=== PATIENT | male | born 1950 | race Caucasian/White ===

== ENCOUNTER 2022-06-04 16:23 | Inpatient (IN) ==
[2022-06-04 17:30] LABS: Hematocrit 38.8 % (37.5-50.1); Hemoglobin 13.9 g/dL (12.9-16.9); Immature Platelets 4.9 % (1.1-6.1); Mean Corpuscular HGB Conc 35.8 g/dL (31.6-35.5); Mean Corpuscular Hemoglobin 33.3 pg (28.0-33.3); Mean Platelet Volume 10.4 fL (9.4-12.4); Red Blood Count 4.17 M/mcL (4.19-5.50); Red Cell Distribution Width 12.9 % (11.5-14.5)
[2022-06-04 17:52] LABS: BUN/Creatinine Ratio 10 (6-26); Blood Urea Nitrogen 10 mg/dL (8-23); Calcium 9.2 mg/dL (8.6-10.3); Carbon Dioxide 27 mEq/L (23-29); Chloride 101 mEq/L (98-107); Glucose 111 mg/dL (70-105); Magnesium 1.8 mg/dL (1.6-2.6); Osmolality,Calculated 280 (280-300); Potassium 3.9 mEq/L (3.5-5.1); Sodium 135 mEq/L (136-145); Troponin I < 0.03 ng/mL (< 0.04)
[2022-06-04] MEDS ORDERED: Ondansetron 4 MG/2 ML VIAL IVP PRN (20:50)
[2022-06-04] MEDS ORDERED: Naloxone 0.4 MG/ML INJ IVP PRN (20:50)
[2022-06-04] MEDS ORDERED: Acetaminophen 325 MG TABLET PO PRN (20:50)
[2022-06-04] MEDS ORDERED: Melatonin 3 MG TABLET PO PRN (20:50)
[2022-06-04] MEDS ORDERED: *HR* Dextrose 50 % in Water (Syg) 50 ML SYRINGE IVP PRN (21:36)
[2022-06-04] MEDS ORDERED: Dextrose Gel 15 GM/37.5 ML TUBE PO PRN ×2 (21:36)
[2022-06-04] MEDS ORDERED: D5% in Water 1,000 ML IVC PRN (21:36)
[2022-06-04] MEDS ORDERED: *HR* Labetalol 20 MG/4 ML SYRINGE IVP PRN (22:33)
[2022-06-05] MEDS: Insulin LISPRO 300 UNITS/3 ML VIAL SUBQ SCH ×4 (01:06→18:13)
[2022-06-05 05:59] LABS: Basophils % 0.6 %; Eosinophils # 0.2 K/mcL (0.0-0.6); Eosinophils % 2.3 %; Hematocrit 38.1 % (37.5-50.1); Hemoglobin 13.5 g/dL (12.9-16.9); Immature Granulocytes % 0.6 % (0-4); Immature Platelets 4.4 % (1.1-6.1); Lymphocytes # 2.2 K/mcL (0.6-4.6); Lymphocytes % 31.8 %; Mean Corpuscular HGB Conc 35.4 g/dL (31.6-35.5); Mean Corpuscular Hemoglobin 32.8 pg (28.0-33.3); Mean Corpuscular Volume 92.7 fL (83.0-100.0); Mean Platelet Volume 10.2 fL (9.4-12.4); Monocytes # 0.7 K/mcL (0.0-1.3); Monocytes % 10.6 %; Neutrophils # 3.7 K/mcL (1.6-8.9); Platelet Count 128 K/mcL (140-400); Red Blood Count 4.11 M/mcL (4.19-5.50); Red Cell Distribution Width 12.9 % (11.5-14.5); Segmented Neutrophils % 54.1 %; White Blood Count 6.9 K/mcL (4.3-11.1)
[2022-06-05] MEDS ORDERED: NiCARdipine 2.5 MG/10 ML Syringe IVPB ONE (06:26)
[2022-06-05] MEDS ORDERED: DOBUTamine 1,000 MG/250 ML BAG ONE (06:26)
[2022-06-05] MEDS ORDERED: *HR* Vasopressin 20 UNIT/ML VIAL ONE (06:26)
[2022-06-05 06:30] LABS: Calcium 9.1 mg/dL (8.6-10.3); Potassium 3.8 mEq/L (3.5-5.1)
[2022-06-05] MEDS ORDERED: niCARdipine 0 MG/0 ML MLS IVC ONE (06:46)
[2022-06-05] MEDS ORDERED: *HR* Rocuronium Bromide 50 MG/5 ML VIAL ONE (06:46)
[2022-06-05] MEDS ORDERED: *HR* Norepinephrine 4 MG/4 ML VIAL IVC ONE (06:46)
[2022-06-05] MEDS ORDERED: Tranexamic Acid 1,000 MG/10 ML VIAL ONE (06:48)
[2022-06-05] MEDS ORDERED: *HR* Etomidate 20 MG/10 ML AMPUL IVP ONE (06:48)
[2022-06-05] MEDS ORDERED: Calcium Gluconate 1,000 MG/10 ML VIAL ONE (06:51)
[2022-06-05] MEDS ORDERED: Protamine Sulfate 250 MG/25 ML VIAL IVP ONE (06:51)
[2022-06-05] MEDS ORDERED: *HR* Midazolam HCl 5 MG/5 ML VIAL IVP ONE (06:52)
[2022-06-05] MEDS ORDERED: *HR* FentaNYL (PF) 250 MCG/5 ML VIAL ONE (06:52)
[2022-06-05] MEDS ORDERED: *HR* FentaNYL (PF) 100 MCG/2 ML VIAL ONE ×2 (07:11→16:22)
[2022-06-05] MEDS ORDERED: *HR* Heparin 10,000 UNIT/10 ML VIAL ONE ×2 (07:11→15:26)
[2022-06-05] MEDS ORDERED: *HR* Midazolam HCl 2 MG/2 ML VIAL ONE ×2 (07:11→16:22)
[2022-06-05] MEDS ORDERED: Heparin 1,000 UNITS/500 mL 0 ML ONE (07:11)
[2022-06-05] MEDS ORDERED: Nitroglycerin 1,000 MCG/5 ML VIAL IV ONE ×2 (07:12→15:26)
[2022-06-05] MEDS ORDERED: Iopamidol - 370 200 ML INFUS..BTL ONE ×2 (07:12→15:26)
[2022-06-05] MEDS ORDERED: Clindamycin 900 MG/50 ML 900 MG/50 ML IV.SOLN IVPB ONE (08:45)
[2022-06-05] MEDS ORDERED: atenoloL 50 MG TABLET PO SCH (09:00)
[2022-06-05] MEDS ORDERED: Aspirin 81 MG TAB.CHEW PO SCH (09:00)
[2022-06-05 09:46] LABS: ABG Base Excess -1 mEq/L (-2 to 3); ABG HCO3 22 mEq/L (21-27); ABG Oxygen Saturation 97 % (95-98); ABG PCO2 31 mmHg (35-45); ABG PH 7.47 pH Units (7.32-7.45); ABG PO2 82 mmHg (85-104); ABG TCO2 23 mEq/L (20-26)
[2022-06-05 09:49] LABS: INR 1.2; Prothrombin Time 13.9 Seconds (9.4-12.1)
[2022-06-05 09:52] LABS: Activated Partial Thrombo Time 34.5 Seconds (26.0-36.0)
[2022-06-05 09:55] LABS: Heparin anti-factor XA LMWH 0.24 IU/mL (0.50-1.10)
[2022-06-05 09:56] LABS: Chol/HDL Ratio 4.7 (0-4.9)
[2022-06-05] MEDS: lisinopriL 10 MG TABLET PO SCH (10:33)
[2022-06-05] MEDS: Chlorhexidine Rinse 15 ML MOUTHWASH MM SCH ×3 (10:33→20:09)
[2022-06-05] MEDS: Primidone 50 MG TABLET PO SCH (10:33)
[2022-06-05 10:37] LABS: Estimated Average Glucose 140 mg/dl; Hemoglobin A1C 6.5 %
[2022-06-05] MEDS ORDERED: Lidocaine Viscous Oral Soln 15 ML SOLUTION MM PRN (11:37)
[2022-06-05] MEDS ORDERED: 0.9 % Sodium Chloride 500 ML IVC ONE (11:38)
[2022-06-05] MEDS: *HR* FentaNYL (PF) 100 MCG/2 ML VIAL IVP PRN ×2 (12:00→12:02)
[2022-06-05] MEDS: *HR* Midazolam HCl 5 MG/5 ML VIAL IVP PRN ×2 (12:00→12:02)
[2022-06-05] MEDS ORDERED: 0.9 % Sodium Chloride 2,000 ML ONE (15:26)
[2022-06-05] MEDS ORDERED: Heparin 1,000 UNITS/500 mL 500 ML ONE ×2 (15:26→17:36)
[2022-06-05] MEDS ORDERED: Heparin 1,000 UNITS/500 mL IV.SOLN IVC ONE (18:13)
[2022-06-05] MEDS: atenoloL 50 MG TABLET PO SCH (18:32)
[2022-06-05] MEDS: Heparin 1,000 UNITS/500 mL 500 ML IVC SCH (18:43)
[2022-06-05] MEDS ORDERED: 0.9 % Sodium Chloride 250 ML IVC SCH (23:45)
[2022-06-06 00:14] LABS: Influenza A PCR Negative (Negative); Influenza B PCR Negative (Negative); Resp. Syncytial Virus PCR Negative (Negative)
[2022-06-06 00:16] LABS: SARS-CoV-2 by PCR (In House) Negative (Negative)
[2022-06-06] MEDS: Insulin LISPRO 300 UNITS/3 ML VIAL SUBQ SCH ×2 (03:36→06:01)
[2022-06-06 05:12] LABS: Basophils % 0.6 %; Eosinophils # 0.2 K/mcL (0.0-0.6); Eosinophils % 2.5 %; Immature Granulocytes % 0.4 % (0-4); Lymphocytes # 1.6 K/mcL (0.6-4.6); Lymphocytes % 22.8 %; Mean Corpuscular HGB Conc 36.1 g/dL (31.6-35.5); Mean Corpuscular Hemoglobin 33.7 pg (28.0-33.3); Mean Corpuscular Volume 93.3 fL (83.0-100.0); Mean Platelet Volume 9.8 fL (9.4-12.4); Monocytes # 0.7 K/mcL (0.0-1.3); Monocytes % 10.1 %; Neutrophils # 4.5 K/mcL (1.6-8.9); Platelet Count 123 K/mcL (140-400); Red Blood Count 3.86 M/mcL (4.19-5.50); Red Cell Distribution Width 13.2 % (11.5-14.5); Segmented Neutrophils % 63.6 %; White Blood Count 7.1 K/mcL (4.3-11.1)
[2022-06-06 05:34] LABS: Calcium 8.4 mg/dL (8.6-10.3); Potassium 4.2 mEq/L (3.5-5.1)
[2022-06-06] MEDS: Chlorhexidine Rinse 15 ML MOUTHWASH MM SCH ×2 (05:38→19:49)
[2022-06-06] MEDS ORDERED: Aspirin 81 MG TAB.CHEW PO ONE (06:00)
[2022-06-06] MEDS ORDERED: Papaverine 60 MG/2 ML VIAL IVP ONE (06:01)
[2022-06-06] MEDS ORDERED: NiCARdipine 2.5 MG/10 ML Syringe IVPB ONE (06:04)
[2022-06-06] MEDS ORDERED: DOBUTamine 1,000 MG/250 ML BAG ONE (06:04)
[2022-06-06] MEDS ORDERED: *HR* FentaNYL (PF) 1,000 MCG/20 ML VIAL ONE (06:09)
[2022-06-06] MEDS ORDERED: *HR* Midazolam HCl 5 MG/5 ML VIAL IVP ONE (06:09)
[2022-06-06] MEDS ORDERED: *HR* Propofol 200 MG/20 ML VIAL IVP ONE (06:09)
[2022-06-06] MEDS ORDERED: *HR* Rocuronium Bromide 50 MG/5 ML VIAL ONE ×3 (06:12→10:53)
[2022-06-06] MEDS ORDERED: *HR* Magnesium Sulfate 1 GM/2 ML VIAL ONE (06:14)
[2022-06-06] MEDS ORDERED: Lidocaine 2% Syringe 100 MG/5 ML ONE (06:14)
[2022-06-06] MEDS ORDERED: Tranexamic Acid 1,000 MG/10 ML VIAL ONE (06:14)
[2022-06-06] MEDS ORDERED: Famotidine 20 MG/2 ML VIAL ONE (06:14)
[2022-06-06] MEDS ORDERED: Clindamycin 900 MG/50 ML 900 MG/50 ML IV.SOLN IVPB ONE (07:00)
[2022-06-06] MEDS ORDERED: del Nido Cardioplegia Solution PF ONE ×2 (07:00)
[2022-06-06] MEDS ORDERED: Buckersberg's Blood Cardioplegia PF ONE (07:00)
[2022-06-06] MEDS ORDERED: Norepinephrine 4 MG in 0.9 % Sodium Chloride 250 ML IVC PRN (07:00)
[2022-06-06] MEDS ORDERED: Heparin 15,000 UNIT in 0.9 % Sodium Chloride 500 ML IR ONE (07:00)
[2022-06-06 07:28] LABS: ABG Base Excess -4 mEq/L (-2 to 3); ABG Chloride 106 mEq/L (98-107); ABG Glucose 134 mg/dL (60-95); ABG HCO3 22 mEq/L (21-27); ABG Ionized Calcium 1.16 mmol/L (1.15-1.35); ABG Oxygen Saturation 99 % (95-98); ABG PCO2 45 mmHg (35-45); ABG PH 7.31 pH Units (7.32-7.45); ABG PO2 154 mmHg (85-104); ABG TCO2 24 mEq/L (20-26)
[2022-06-06] MEDS ORDERED: Vancomycin 2,000 MG/520 ML IV.SOLN IVPB ONE (08:00)
[2022-06-06 08:56] LABS: ABG Base Excess -3 mEq/L (-2 to 3); ABG Chloride 106 mEq/L (98-107); ABG Glucose 114 mg/dL (60-95); ABG HCO3 22 mEq/L (21-27); ABG Ionized Calcium 1.13 mmol/L (1.15-1.35); ABG Oxygen Saturation 97 % (95-98); ABG PCO2 41 mmHg (35-45); ABG PH 7.34 pH Units (7.32-7.45); ABG PO2 97 mmHg (85-104); ABG TCO2 23 mEq/L (20-26)
[2022-06-06] MEDS ORDERED: *HR* Phenylephrine 10 MG/ML VIAL IVC ONE (09:00)
[2022-06-06] MEDS ORDERED: *HR* Heparin 10,000 UNIT/10 ML VIAL IR ONE (09:00)
[2022-06-06] MEDS ORDERED: Mannitol 25% vial 12.5 GM/50 ML VIAL IVPB ONE (09:00)
[2022-06-06] MEDS ORDERED: Tranexamic Acid 1,000 MG/10 ML VIAL IR ONE (09:00)
[2022-06-06] MEDS ORDERED: Lidocaine 2% Syringe 100 MG/5 ML IVP ONE (09:00)
[2022-06-06] MEDS ORDERED: Heparin 1,000 UNITS/500 mL IV.SOLN IR ONE (09:00)
[2022-06-06] MEDS ORDERED: Albumin Human 25% 25 GM/100 ML IV.SOLN IVPB ONE (09:00)
[2022-06-06] MEDS ORDERED: D5% in Water 250 ML IV BAG IV ONE (09:00)
[2022-06-06 10:00] LABS: ABG Base Excess 0 mEq/L (-2 to 3); ABG Chloride 103 mEq/L (98-107); ABG Glucose 130 mg/dL (60-95); ABG HCO3 24 mEq/L (21-27); ABG Ionized Calcium 0.96 mmol/L (1.15-1.35); ABG Oxygen Saturation 96 % (95-98); ABG PCO2 37 mmHg (35-45); ABG PH 7.42 pH Units (7.32-7.45); ABG PO2 77 mmHg (85-104); ABG TCO2 25 mEq/L (20-26)
[2022-06-06] MEDS ORDERED: HUM PROTHROMBIN CPLX IVPB ONE (10:00)
[2022-06-06] MEDS ORDERED: WATER FOR INJ IVPB ONE (10:00)
[2022-06-06] MEDS ORDERED: [UNRECOGNIZED DRUG - OTHER] IVPB ONE (10:00)
[2022-06-06] MEDS ORDERED: Dexmedetomidine HCl 400 MCG/100 ML MLS IVC ONE (10:10)
[2022-06-06] MEDS ORDERED: *HR* FentaNYL (PF) 100 MCG/2 ML VIAL IVP PRN (10:22)
[2022-06-06] MEDS ORDERED: Albuterol 2.5 MG/3 ML NEBULIZER IH PRN (10:22)
[2022-06-06] MEDS ORDERED: Albumin Human 5% 12.5 GM/250 ML IV.SOLN IVPB PRN (10:22)
[2022-06-06] MEDS ORDERED: *HR* Dextrose 50 % in Water (Syg) 50 ML SYRINGE IVP PRN (10:22)
[2022-06-06 10:28] LABS: ABG Base Excess 0 mEq/L (-2 to 3); ABG Chloride 103 mEq/L (98-107); ABG Glucose 155 mg/dL (60-95); ABG HCO3 24 mEq/L (21-27); ABG Ionized Calcium 0.99 mmol/L (1.15-1.35); ABG Oxygen Saturation 100 % (95-98); ABG PCO2 39 mmHg (35-45); ABG PO2 500 mmHg (85-104); ABG TCO2 26 mEq/L (20-26)
[2022-06-06] MEDS ORDERED: Calcium Gluconate 1,000 MG/10 ML VIAL ONE (10:36)
[2022-06-06] MEDS ORDERED: Protamine Sulfate 50 MG/5 ML VIAL IVP ONE ×2 (10:36→10:37)
[2022-06-06] MEDS ORDERED: Protamine Sulfate 250 MG/25 ML VIAL IVP ONE (10:36)
[2022-06-06] MEDS ORDERED: *HR* Amiodarone 150 MG/3 ML VIAL IVPB ONE (10:41)
[2022-06-06] MEDS ORDERED: *HR* FentaNYL (PF) 250 MCG/5 ML VIAL ONE (10:51)
[2022-06-06] MEDS ORDERED: niCARdipine 20 MG/200 ML MLS IVC ONE ×2 (10:51→13:52)
[2022-06-06 11:09] LABS: ABG Base Excess -2 mEq/L (-2 to 3); ABG Chloride 104 mEq/L (98-107); ABG Glucose 190 mg/dL (60-95); ABG HCO3 23 mEq/L (21-27); ABG Ionized Calcium 1.38 mmol/L (1.15-1.35); ABG Oxygen Saturation 100 % (95-98); ABG PCO2 38 mmHg (35-45); ABG PO2 551 mmHg (85-104); ABG TCO2 24 mEq/L (20-26)
[2022-06-06 11:14] LABS: ABG Base Excess -3 mEq/L (-2 to 3); ABG Chloride 105 mEq/L (98-107); ABG Glucose 192 mg/dL (60-95); ABG HCO3 23 mEq/L (21-27); ABG Ionized Calcium 1.19 mmol/L (1.15-1.35); ABG Oxygen Saturation 100 % (95-98); ABG PCO2 40 mmHg (35-45); ABG PH 7.37 pH Units (7.32-7.45); ABG PO2 232 mmHg (85-104); ABG TCO2 24 mEq/L (20-26)
[2022-06-06] MEDS: niCARdipine 20 MG/200 ML MLS IVC SCH ×3 (12:05→15:36)
[2022-06-06] MEDS: Dexmedetomidine HCl 400 MCG/100 ML MLS IVC SCH ×3 (12:05→21:30)
[2022-06-06 12:26] LABS: ABG Base Excess -2 mEq/L (-2 to 3); ABG HCO3 24 mEq/L (21-27); ABG Oxygen Saturation 90 % (95-98); ABG PCO2 44 mmHg (35-45); ABG PH 7.35 pH Units (7.32-7.45); ABG PO2 62 mmHg (85-104); ABG TCO2 25 mEq/L (20-26); Blood Gas Modality ASSIST CONTROL; Blood Gas VT 550 cc
[2022-06-06 12:51] LABS: INR 1.1; Prothrombin Time 12.5 Seconds (9.4-12.1)
[2022-06-06 12:54] LABS: Activated Partial Thrombo Time 32.2 Seconds (26.0-36.0)
[2022-06-06 12:57] LABS: Calcium 8.7 mg/dL (8.6-10.3); Potassium 4.6 mEq/L (3.5-5.1)
[2022-06-06] MEDS ORDERED: Furosemide 20 MG/2 ML VIAL IVP ONE (13:37)
[2022-06-06] MEDS: Norepinephrine 4 MG/254 ML IV.SOLN IVC SCH ×2 (13:38→19:44)
[2022-06-06] MEDS: Primidone 50 MG TABLET PO SCH (13:38)
[2022-06-06 14:09] LABS: Basophils % 0.1 %; Eosinophils % 0.1 %; Hematocrit 30.6 % (37.5-50.1); Immature Granulocytes % 0.7 % (0-4); Lymphocytes # 1.1 K/mcL (0.6-4.6); Lymphocytes % 7.1 %; Mean Corpuscular HGB Conc 35.9 g/dL (31.6-35.5); Mean Corpuscular Hemoglobin 33.6 pg (28.0-33.3); Mean Corpuscular Volume 93.6 fL (83.0-100.0); Monocytes # 1.3 K/mcL (0.0-1.3); Monocytes % 8.6 %; Neutrophils # 12.5 K/mcL (1.6-8.9); Platelet Count 123 K/mcL (140-400); Red Blood Count 3.27 M/mcL (4.19-5.50); Segmented Neutrophils % 83.4 %
[2022-06-06 14:38] LABS: ABG Base Excess -3 mEq/L (-2 to 3); ABG Chloride 102 mEq/L (98-107); ABG Glucose 116 mg/dL (60-95); ABG HCO3 24 mEq/L (21-27); ABG Ionized Calcium 1.05 mmol/L (1.15-1.35); ABG PCO2 50 mmHg (35-45); ABG PH 7.29 pH Units (7.32-7.45); ABG PO2 > 630 mmHg (85-104); ABG TCO2 26 mEq/L (20-26)
[2022-06-06] MEDS: Clindamycin 900 MG/50 ML 900 MG/50 ML IV.SOLN IVPB SCH ×2 (15:37→23:32)
[2022-06-06 16:26] LABS: ABG Base Excess -1 mEq/L (-2 to 3); ABG HCO3 23 mEq/L (21-27); ABG Oxygen Saturation 94 % (95-98); ABG PCO2 38 mmHg (35-45); ABG PO2 69 mmHg (85-104); ABG TCO2 25 mEq/L (20-26); Blood Gas Modality ASSIST CONTROL; Blood Gas VT 450 cc
[2022-06-06] MEDS: FentaNYL (PF) 1,000 MCG/100 ML IV.SOLN IVC SCH ×2 (17:08→23:30)
[2022-06-06] MEDS: atenoloL 50 MG TABLET PO SCH (18:04)
[2022-06-06] MEDS: Bumetanide 1 MG/4 ML VIAL IVP SCH (20:42)
[2022-06-07] MEDS: Dexmedetomidine HCl 400 MCG/100 ML MLS IVC SCH ×3 (02:08→07:52)
[2022-06-07] MEDS: niCARdipine 20 MG/200 ML MLS IVC SCH ×3 (02:08→23:58)
[2022-06-07] MEDS: *HR* OxyCODONE/APAP 5/325 TABLET PO PRN ×5 (02:34→20:20)
[2022-06-07 03:34] LABS: Basophils % 0.1 %; Hematocrit 27.6 % (37.5-50.1); Hemoglobin 9.7 g/dL (12.9-16.9); Immature Granulocytes % 0.5 % (0-4); Lymphocytes # 0.4 K/mcL (0.6-4.6); Mean Corpuscular HGB Conc 35.1 g/dL (31.6-35.5); Mean Corpuscular Hemoglobin 33.2 pg (28.0-33.3); Mean Corpuscular Volume 94.5 fL (83.0-100.0); Monocytes # 0.7 K/mcL (0.0-1.3); Monocytes % 6.8 %; Red Blood Count 2.92 M/mcL (4.19-5.50); Segmented Neutrophils % 88.6 %; White Blood Count 10.2 K/mcL (4.3-11.1)
[2022-06-07 03:36] LABS: Platelet Count 83 K/mcL (140-400)
[2022-06-07 03:48] LABS: INR 1.1; Prothrombin Time 12.1 Seconds (9.4-12.1)
[2022-06-07 03:51] LABS: Activated Partial Thrombo Time 27.8 Seconds (26.0-36.0); Calcium 8.5 mg/dL (8.6-10.3); Magnesium 2.2 mg/dL (1.6-2.6); Potassium 4.2 mEq/L (3.5-5.1)
[2022-06-07 04:28] LABS: ABG Base Excess -2 mEq/L (-2 to 3); ABG HCO3 23 mEq/L (21-27); ABG Oxygen Saturation 95 % (95-98); ABG PCO2 37 mmHg (35-45); ABG PH 7.39 pH Units (7.32-7.45); ABG PO2 76 mmHg (85-104); ABG TCO2 24 mEq/L (20-26); Blood Gas Modality AF; Blood Gas VT 450 cc
[2022-06-07] MEDS: FentaNYL (PF) 1,000 MCG/100 ML IV.SOLN IVC SCH (05:05)
[2022-06-07] MEDS: Bumetanide 1 MG/4 ML VIAL IVP SCH ×2 (05:59→17:20)
[2022-06-07] MEDS: Pantoprazole 40 MG VIAL IVP SCH (07:52)
[2022-06-07] MEDS: Norepinephrine 4 MG/254 ML IV.SOLN IVC SCH ×3 (08:14→23:20)
[2022-06-07] MEDS: Primidone 50 MG TABLET PO SCH (09:37)
[2022-06-07] MEDS: Aspirin 81 MG TAB.CHEW PO SCH (09:37)
[2022-06-07] MEDS: Chlorhexidine Rinse 15 ML MOUTHWASH MM SCH ×2 (09:38→20:20)
[2022-06-07] MEDS: atenoloL 50 MG TABLET PO SCH ×2 (09:38→17:20)
[2022-06-07] MEDS: polyethylene glycoL 3350 17 GM POWD.PACK PO SCH (13:34)
[2022-06-07] MEDS: Insulin LISPRO 300 UNITS/3 ML VIAL SUBQ SCH ×2 (16:16→20:23)
[2022-06-07] MEDS: Heparin 1,000 UNITS/500 mL 500 ML IVC SCH (18:50)
[2022-06-07] MEDS: lisinopriL 10 MG TABLET PO SCH (19:35)
[2022-06-08] MEDS: niCARdipine 20 MG/200 ML MLS IVC SCH ×12 (01:55→22:59)
[2022-06-08] MEDS ORDERED: Insulin Human Regular 10 UNIT in 0.9 % Sodium Chloride 10 ML IV ONE (02:05)
[2022-06-08 03:03] LABS: Basophils % 0.2 %; Eosinophils % 0.2 %; Hematocrit 28.6 % (37.5-50.1); Immature Granulocytes % 0.6 % (0-4); Lymphocytes # 1.1 K/mcL (0.6-4.6); Lymphocytes % 8.8 %; Mean Corpuscular Hemoglobin 33.2 pg (28.0-33.3); Mean Platelet Volume 10.4 fL (9.4-12.4); Monocytes # 0.2 K/mcL (0.0-1.3); Monocytes % 1.8 %; Platelet Count 115 K/mcL (140-400); Red Blood Count 3.01 M/mcL (4.19-5.50); Red Cell Distribution Width 13.2 % (11.5-14.5); Segmented Neutrophils % 88.4 %; White Blood Count 12.5 K/mcL (4.3-11.1)
[2022-06-08] MEDS ORDERED: Insulin Human Regular 5 UNIT in 0.9 % Sodium Chloride 10 ML IV ONE (03:09)
[2022-06-08] MEDS ORDERED: Insulin Regular, Human 100 UNIT/ML IV ONE (03:19)
[2022-06-08 03:26] LABS: Calcium 7.9 mg/dL (8.6-10.3); Potassium 3.4 mEq/L (3.5-5.1)
[2022-06-08] MEDS: Potassium Chloride 40 MEQ/200 ML BAG IVPB PRN ×2 (03:43→04:37)
[2022-06-08] MEDS: Bumetanide 1 MG/4 ML VIAL IVP SCH (05:20)
[2022-06-08 06:55] LABS: Calcium 8.3 mg/dL (8.6-10.3); Potassium 3.9 mEq/L (3.5-5.1)
[2022-06-08] MEDS: Norepinephrine 4 MG/254 ML IV.SOLN IVC SCH ×3 (08:51→23:16)
[2022-06-08] MEDS: Chlorhexidine Rinse 15 ML MOUTHWASH MM SCH ×2 (08:54→20:31)
[2022-06-08] MEDS: Pantoprazole 40 MG VIAL IVP SCH (08:54)
[2022-06-08] MEDS: atenoloL 50 MG TABLET PO SCH ×2 (08:55→18:34)
[2022-06-08] MEDS: Primidone 50 MG TABLET PO SCH (08:55)
[2022-06-08] MEDS: Aspirin 81 MG TAB.CHEW PO SCH (08:55)
[2022-06-08] MEDS: polyethylene glycoL 3350 17 GM POWD.PACK PO SCH (08:55)
[2022-06-08] MEDS: Insulin LISPRO 300 UNITS/3 ML VIAL SUBQ SCH ×4 (10:06→20:31)
[2022-06-08] MEDS ORDERED: Amiodarone 300 MG in D5% in Water 100 ML IVPB ONE (12:34)
[2022-06-08] MEDS: *HR* OxyCODONE/APAP 5/325 TABLET PO PRN (19:25)
[2022-06-08] MEDS: *HR* Amiodarone 200 MG TABLET PO SCH (20:31)
[2022-06-09] MEDS: niCARdipine 20 MG/200 ML MLS IVC SCH (00:50)
[2022-06-09 02:51] LABS: Basophils # 0.1 K/mcL (0.0-0.2); Basophils % 0.4 %; Eosinophils # 0.2 K/mcL (0.0-0.6); Eosinophils % 1.6 %; Hematocrit 27.2 % (37.5-50.1); Hemoglobin 9.5 g/dL (12.9-16.9); Lymphocytes # 2.1 K/mcL (0.6-4.6); Lymphocytes % 17.1 %; Mean Corpuscular HGB Conc 34.9 g/dL (31.6-35.5); Mean Corpuscular Hemoglobin 33.2 pg (28.0-33.3); Mean Corpuscular Volume 95.1 fL (83.0-100.0); Mean Platelet Volume 10.1 fL (9.4-12.4); Monocytes # 0.9 K/mcL (0.0-1.3); Monocytes % 7.5 %; Platelet Count 106 K/mcL (140-400); Red Blood Count 2.86 M/mcL (4.19-5.50); Red Cell Distribution Width 13.2 % (11.5-14.5); Segmented Neutrophils % 72.4 %; White Blood Count 12.5 K/mcL (4.3-11.1)
[2022-06-09 03:06] LABS: BUN/Creatinine Ratio 36 (6-26); Blood Urea Nitrogen 32 mg/dL (8-23); Calcium 7.6 mg/dL (8.6-10.3); Carbon Dioxide 25 mEq/L (23-29); Chloride 103 mEq/L (98-107); Glucose 101 mg/dL (70-105); Osmolality,Calculated 285 (280-300); Potassium 3.3 mEq/L (3.5-5.1); Sodium 134 mEq/L (136-145)
[2022-06-09] MEDS: Insulin LISPRO 300 UNITS/3 ML VIAL SUBQ SCH ×4 (06:40→20:24)
[2022-06-09] MEDS: Pantoprazole 40 MG VIAL IVP SCH (09:03)
[2022-06-09] MEDS: Chlorhexidine Rinse 15 ML MOUTHWASH MM SCH ×2 (09:03→19:47)
[2022-06-09] MEDS: Aspirin 81 MG TAB.CHEW PO SCH (09:04)
[2022-06-09] MEDS: atenoloL 50 MG TABLET PO SCH ×2 (09:05→17:24)
[2022-06-09] MEDS: polyethylene glycoL 3350 17 GM POWD.PACK PO SCH (09:06)
[2022-06-09] MEDS: Primidone 50 MG TABLET PO SCH (09:06)
[2022-06-09] MEDS: *HR* Amiodarone 200 MG TABLET PO SCH ×2 (09:06→20:23)
[2022-06-09] MEDS: Norepinephrine 4 MG/254 ML IV.SOLN IVC SCH ×3 (09:07→23:06)
[2022-06-09] MEDS ORDERED: Insulin DETEMIR 100 UNIT/ML X5UNITS SUBQ SCH (17:00)
[2022-06-09] MEDS: Dexmedetomidine HCl 400 MCG/100 ML MLS IVC SCH (19:47)
[2022-06-09] MEDS: *HR* Heparin 5,000 UNIT/ML VIAL SQ SCH (21:45)
[2022-06-09] MEDS ORDERED: Insulin DETEMIR 100 UNIT/ML X5UNITS SUBQ ONE (22:39)
[2022-06-10 03:53] LABS: Basophils % 0.4 %; Eosinophils # 0.2 K/mcL (0.0-0.6); Eosinophils % 1.9 %; Hematocrit 27.5 % (37.5-50.1); Hemoglobin 9.8 g/dL (12.9-16.9); Immature Granulocytes % 0.9 % (0-4); Lymphocytes % 19.1 %; Mean Corpuscular HGB Conc 35.6 g/dL (31.6-35.5); Mean Corpuscular Hemoglobin 33.6 pg (28.0-33.3); Mean Corpuscular Volume 94.2 fL (83.0-100.0); Mean Platelet Volume 10.3 fL (9.4-12.4); Monocytes % 9.7 %; Neutrophils # 6.9 K/mcL (1.6-8.9); Platelet Count 125 K/mcL (140-400); Red Blood Count 2.92 M/mcL (4.19-5.50); Red Cell Distribution Width 13.1 % (11.5-14.5); White Blood Count 10.2 K/mcL (4.3-11.1)
[2022-06-10 04:09] LABS: BUN/Creatinine Ratio 37 (6-26); Blood Urea Nitrogen 33 mg/dL (8-23); Calcium 8.2 mg/dL (8.6-10.3); Carbon Dioxide 25 mEq/L (23-29); Chloride 103 mEq/L (98-107); Glucose 199 mg/dL (70-105); Osmolality,Calculated 289 (280-300); Potassium 3.7 mEq/L (3.5-5.1); Sodium 133 mEq/L (136-145)
[2022-06-10] MEDS: *HR* Heparin 5,000 UNIT/ML VIAL SQ SCH ×3 (05:38→21:14)
[2022-06-10] MEDS: Insulin LISPRO 300 UNITS/3 ML VIAL SUBQ SCH ×4 (08:56→21:12)
[2022-06-10] MEDS: polyethylene glycoL 3350 17 GM POWD.PACK PO SCH (08:57)
[2022-06-10] MEDS: Aspirin 81 MG TAB.CHEW PO SCH (08:58)
[2022-06-10] MEDS: Pantoprazole 40 MG VIAL IVP SCH (08:58)
[2022-06-10] MEDS: Primidone 50 MG TABLET PO SCH (08:59)
[2022-06-10] MEDS ORDERED: Insulin DETEMIR 100 UNIT/ML X5UNITS SUBQ SCH (09:00)
[2022-06-10] MEDS: Chlorhexidine Rinse 15 ML MOUTHWASH MM SCH ×2 (09:00→21:11)
[2022-06-10] MEDS: *HR* Amiodarone 200 MG TABLET PO SCH ×2 (09:00→21:11)
[2022-06-10] MEDS: atenoloL 50 MG TABLET PO SCH ×2 (09:00→16:49)
[2022-06-10] MEDS: Insulin DETEMIR 100 UNIT/ML X5UNITS SUBQ SCH (21:11)
[2022-06-11 05:01] LABS: Basophils % 0.4 %; Eosinophils # 0.2 K/mcL (0.0-0.6); Eosinophils % 2.3 %; Hematocrit 28.2 % (37.5-50.1); Hemoglobin 9.8 g/dL (12.9-16.9); Immature Granulocytes % 1.8 % (0-4); Lymphocytes % 20.5 %; Mean Corpuscular HGB Conc 34.8 g/dL (31.6-35.5); Mean Corpuscular Hemoglobin 32.3 pg (28.0-33.3); Mean Corpuscular Volume 93.1 fL (83.0-100.0); Mean Platelet Volume 10.5 fL (9.4-12.4); Monocytes # 1.2 K/mcL (0.0-1.3); Monocytes % 12.4 %; Neutrophils # 6.2 K/mcL (1.6-8.9); Platelet Count 141 K/mcL (140-400); Red Blood Count 3.03 M/mcL (4.19-5.50); Red Cell Distribution Width 12.9 % (11.5-14.5); Segmented Neutrophils % 62.6 %
[2022-06-11 05:18] LABS: Calcium 7.9 mg/dL (8.6-10.3); Potassium 3.7 mEq/L (3.5-5.1)
[2022-06-11] MEDS: *HR* Heparin 5,000 UNIT/ML VIAL SQ SCH ×3 (05:50→20:35)
[2022-06-11] MEDS: niCARdipine 20 MG/200 ML MLS IVC SCH (05:51)
[2022-06-11] MEDS: Chlorhexidine Rinse 15 ML MOUTHWASH MM SCH ×2 (08:15→20:35)
[2022-06-11] MEDS: atenoloL 50 MG TABLET PO SCH (08:17)
[2022-06-11] MEDS: Primidone 50 MG TABLET PO SCH (08:17)
[2022-06-11] MEDS: Aspirin 81 MG TAB.CHEW PO SCH (08:17)
[2022-06-11] MEDS: Pantoprazole 40 MG VIAL IVP SCH (08:17)
[2022-06-11] MEDS: *HR* Amiodarone 200 MG TABLET PO SCH ×2 (08:17→20:35)
[2022-06-11] MEDS: Insulin DETEMIR 100 UNIT/ML X5UNITS SUBQ SCH (08:17)
[2022-06-11] MEDS: polyethylene glycoL 3350 17 GM POWD.PACK PO SCH (08:18)
[2022-06-11] MEDS: Insulin LISPRO 300 UNITS/3 ML VIAL SUBQ SCH ×5 (08:18→15:56)
[2022-06-11] MEDS ORDERED: Acetaminophen 325 MG TABLET PO PRN (10:35)
[2022-06-11] MEDS ORDERED: *HR* Dextrose 50 % in Water (Syg) 50 ML SYRINGE IVP PRN (10:35)
[2022-06-11] MEDS ORDERED: Ondansetron 4 MG/2 ML VIAL IVP PRN (10:35)
[2022-06-11] MEDS ORDERED: *HR* OxyCODONE/APAP 5/325 TABLET PO PRN (10:35)
[2022-06-11] MEDS ORDERED: Naloxone 0.4 MG/ML INJ IVP PRN (10:35)
[2022-06-11] MEDS ORDERED: Melatonin 3 MG TABLET PO PRN (10:35)
[2022-06-11] MEDS ORDERED: Potassium Chloride 40 MEQ/200 ML BAG IVPB PRN (10:35)
[2022-06-11] MEDS ORDERED: *HR* Labetalol 20 MG/4 ML SYRINGE IVP PRN (10:35)
[2022-06-11] MEDS ORDERED: Albuterol 2.5 MG/3 ML NEBULIZER IH PRN (10:35)
[2022-06-11 11:44] LABS: VBG Ionized Calcium 1.21 mmol/L (1.15-1.35)
[2022-06-11] MEDS ORDERED: atenoloL 50 MG TABLET PO SCH (18:00)
[2022-06-11] MEDS: Dexmedetomidine HCl 400 MCG/100 ML MLS IVC SCH (19:28)
[2022-06-11] MEDS: *HR* Metformin 500 MG TABLET PO SCH (20:35)
[2022-06-11] MEDS: *HR* Glimepiride 4 MG TABLET PO SCH (20:35)
[2022-06-12] MEDS: Insulin LISPRO 300 UNITS/3 ML VIAL SUBQ SCH ×8 (01:47→20:44)
[2022-06-12] MEDS: Insulin DETEMIR 100 UNIT/ML X5UNITS SUBQ SCH ×3 (01:47→20:44)
[2022-06-12] MEDS: Dexmedetomidine HCl 400 MCG/100 ML MLS IVC SCH (01:47)
[2022-06-12 04:06] LABS: BUN/Creatinine Ratio 32 (6-26); Blood Urea Nitrogen 26 mg/dL (8-23); Calcium 8.2 mg/dL (8.6-10.3); Carbon Dioxide 26 mEq/L (23-29); Chloride 102 mEq/L (98-107); Glucose 168 mg/dL (70-105); Osmolality,Calculated 283 (280-300); Potassium 3.7 mEq/L (3.5-5.1); Sodium 132 mEq/L (136-145)
[2022-06-12] MEDS: *HR* Heparin 5,000 UNIT/ML VIAL SQ SCH ×2 (05:56→13:39)
[2022-06-12] MEDS: Chlorhexidine Rinse 15 ML MOUTHWASH MM SCH ×2 (08:15→20:44)
[2022-06-12] MEDS: *HR* Glimepiride 4 MG TABLET PO SCH (08:17)
[2022-06-12] MEDS: *HR* Metformin 500 MG TABLET PO SCH (08:18)
[2022-06-12] MEDS: *HR* Amiodarone 200 MG TABLET PO SCH (08:18)
[2022-06-12] MEDS ORDERED: *HR* Labetalol 20 MG/4 ML SYRINGE IVP PRN (08:54)
[2022-06-12] MEDS ORDERED: polyethylene glycoL 3350 17 GM POWD.PACK PO SCH (09:00)
[2022-06-12] MEDS ORDERED: Aspirin 81 MG TAB.CHEW PO SCH (09:00)
[2022-06-12] MEDS ORDERED: Pantoprazole 40 MG VIAL IVP SCH (09:00)
[2022-06-12] MEDS ORDERED: atenoloL 50 MG TABLET PO SCH (09:00)
[2022-06-12] MEDS ORDERED: Primidone 50 MG TABLET PO SCH (09:00)
[2022-06-12] MEDS ORDERED: Moderna Covid-19 Vaccine 100MCG/0.5mL IM ONE (11:17)
[2022-06-12 12:32] LABS: Influenza A PCR Negative (Negative); Influenza B PCR Negative (Negative); Resp. Syncytial Virus PCR Negative (Negative)
[2022-06-12 12:34] LABS: SARS-CoV-2 by PCR (In House) Negative (Negative)
[2022-06-12 20:43] VITALS: BP 148/70; PULSE 71; TEMP 98; O2SAT 96
== END 2022-06-12 23:18 | DRG 217 ==
LOC: 2NENU 16:23 → EMEROOARM 16:23 → SUATTDRO 21:05 → 2NENU 22:04 → SUATTDRO 06-05 13:35 → ICNU 06-05 16:34 → 2NNU 06-11 16:58
PROVIDERS: ADMIT Internal Medicine; ATTEND Internal Medicine